=== PATIENT | male | born 1955 | race American Indian/Alaskan Native ===

== ENCOUNTER 2017-09-13 07:39 | Emergency (ER) | payer MEDICARE ==
[2017-09-13 07:50] VITALS: BP 162/91
[2017-09-13] MEDS ORDERED: MOTRIN PO ONE (11:37)
--- NOTE | 2017-09-13 12:06 | XRay Report ---
Left wrist 3 views: History: Status post fall. Findings: No lytic or blastic lesions. No fracture. Impression: No evidence of acute fracture.
--- NOTE | 2017-09-13 12:09 | XRay Report ---
Left shoulder 3 views: History: Left shoulder pain status post fall. Findings: There is arthritic changes noted at the a.c. joint and the glenohumeral joint. Cystic areas in the greater tuberosity probably related to chronic impingement or chronic low-grade injury. Deformed distal left clavicle approximately 2 cm from the articular surface probably related to old injury. 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 Additional findings as detailed above.
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
== END 2017-09-13 12:49 | disposition home or self-care (01) ==
LOC: ED 07:39
DX: S46.912A Strain of unspecified muscle, fascia and tendon at shoulder and upper arm level, left arm, initial encounter (principal); S20.212A Contusion of left front wall of thorax, initial encounter; E11.9 Type 2 diabetes mellitus without complications; F17.200 Nicotine dependence, unspecified, uncomplicated; Y04.8XXA Assault by other bodily force, initial encounter; Y93.89 Activity, other specified; Y92.89 Other specified places as the place of occurrence of the external cause; Y99.8 Other external cause status
CPT/HCPCS: 99283